=== PATIENT | male | born 1995 | race Caucasian/White ===

== ENCOUNTER 2017-07-25 23:05 | Emergency (ER) | payer OTHER ==
[2017-07-25 23:16] VITALS: RESP 16
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
[2017-07-25] MEDS ORDERED: NS 1,000 ML IV ONE (23:26)
[2017-07-25 23:44] LABS: % IMMATURE GRANULYOCYTES 0.3 % (0.0-1.1); ABSOLUTE IMMATURE GRANULOCYTES 0.03 10^3/uL (0.00-0.10); ADD DIFF? NO; ADD MORPH? NO; ADD SCAN? NO; ATYPICAL LYMPHOCYTE FLAG 40 (0-99); FRAGMENT RBC FLAG 0 (0-99); HEMATOCRIT 45.9 % (40.0-51.0); HEMOGLOBIN 16.3 g/dL (13.7-17.5); LEFT SHIFT FLG 0 (0-99); LIPEMIA HEMOLYSIS FLAG 90 (0-99); MEAN CELL HEMOGLOBIN 30.9 pg (27.9-34.1); MEAN CELL HEMOGLOBIN CONCENTR. 35.5 g/dL (32.4-36.7); MEAN CELL VOLUME 87.1 fL (81.5-99.8); MEAN PLATELET VOLUME 9.9 fL (8.7-11.7); PLATELET CLUMPS FLAG 0 (0-99); PLATELET COUNT 237 10^3/uL (150-400); RED BLOOD CELL COUNT 5.27 10^6/uL (4.40-6.38); RED CELL DISTRIBUTION WIDTH 12.1 % (11.5-15.2)
[2017-07-25 23:52] LABS: APTT 28.3 SEC (23.0-38.0); INR 1.06 (0.83-1.16); PROTIME(PATIENT) 13.7 SEC (12.0-15.0)
[2017-07-26 00:04] LABS: ANION GAP 18 mEq/L (8-16); CALCIUM 10.5 mg/dL (8.5-10.4); CARBON DIOXIDE 25 mEq/l (22-31); CHLORIDE 104 mEq/L (97-110); ETHANOL SERUM 219 mg/dL (0-10); GLOMERULAR FILTRATION RATE > 60; GLUCOSE 79 mg/dL (70-100); POTASSIUM 4.4 mEq/L (3.5-5.2); SODIUM 147 mEq/L (134-144)
[2017-07-26] MEDS ORDERED: IOPAMIDOL (ISOVUE-300) 100 ML BTL ONE (00:16)
[2017-07-26 01:51] LABS: COLOR PALE YELLOW; LEUKOCYTE ESTERASE,URINE NEGATIVE (NEGATIVE); NITRITE,URINE NEGATIVE (NEGATIVE)
[2017-07-26 02:39] VITALS: BP 119/70; PULSE 89; TEMP 97.9; O2SAT 97
== END 2017-07-26 02:37 | disposition home or self-care (01) ==
DX: S50.01XA Contusion of right elbow, initial encounter (principal); S70.01XA Contusion of right hip, initial encounter; S20.211A Contusion of right front wall of thorax, initial encounter; S30.1XXA Contusion of abdominal wall, initial encounter; E86.9 Volume depletion, unspecified; V03.99XA Pedestrian with other conveyance injured in collision with car, pick-up truck or van, unspecified whether traffic or nontraffic accident, initial encounter; Y92.410 Unspecified street and highway as the place of occurrence of the external cause; Y99.8 Other external cause status; Y93.01 Activity, walking, marching and hiking
CPT/HCPCS: G0480; Q9967

== ENCOUNTER 2018-02-21 02:21 | Emergency (ER) | payer OTHER ==
[2018-02-21] MEDS ORDERED: NS 1,000 ML IV ONE (02:45)
[2018-02-21 02:55] LABS: PLATELET COUNT 230 10^3/uL (150-400)
[2018-02-21] MEDS ORDERED: IOPAMIDOL (ISOVUE-300) 100 ML BTL ONE (07:08)
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
[2018-02-21] MEDS ORDERED: IBUPROFEN 600 MG TAB PO ONE (12:41)
[2018-02-21] MEDS ORDERED: ACETAMINOPHEN 500 MG TAB PO ONE (12:41)
[2018-02-21 13:24] VITALS: BP 125/78
--- NOTE | 2018-02-21 17:08 | ASMTCAGE ---
CAGE Additional Comments CAGE triggered sec to LTA. Attempted to screen pt earlier in shift, pt unavailable. Unable to meet with pt prior to d/c due to other emergencies within the department. Date Signed: 02/21/2018 05:08 PM Electronically Signed By:Zenia Perry RN
== END 2018-02-21 13:24 | disposition home or self-care (01) ==
LOC: EDUNIT#
DX: S22.088A Other fracture of T11-T12 vertebra, initial encounter for closed fracture (principal); S22.000A Wedge compression fracture of unspecified thoracic vertebra, initial encounter for closed fracture; F10.921 Alcohol use, unspecified with intoxication delirium; E86.9 Volume depletion, unspecified; W13.9XXA Fall from, out of or through building, not otherwise specified, initial encounter
CPT/HCPCS: 80305; G0480; Q9967